=== PATIENT | female | born 1985 | race African-American/Black ===

== ENCOUNTER 2019-11-21 19:53 | Inpatient (IN) ==
[2019-11-21] MEDS ORDERED: ALBUTEROL/IPRATROPIUM 3 ML NEB RESP TX STA (20:22)
[2019-11-21] MEDS ORDERED: methylPREDNISolone SOD SUC 125 MG/2 ML VIAL IV STA (20:22)
[2019-11-21] MEDS ORDERED: cefTRIAXone 1,000 MG in SODIUM CHLORIDE 0.9% 100 ML IV STA (20:22)
[2019-11-21 20:36] LABS: Basophils # 0.1 10*3/uL (0.0-0.2); Basophils % 0.5 % (0.0-0.8); Eosinophils # 0.1 10*3/uL (0.0-0.87); Eosinophils % 0.9 % (0.00-10.9); Hemoglobin 13.1 GM/DL (12.0-16.0); Immature Granulocytes % 0.4 %; Immature Granulocytes Absolute 0.05 #; Lymphocytes # 5.7 10*3/uL (1.4-4.0); Lymphocytes % 47.2 % (21.3-54.2); Mean Corpuscular Volume 89.3 FL (87-102); Mean Platelet Volume 9.9 FL (9.6-12.0); Monocytes % 3.8 % (1.7-12.7); Neutrophils % 47.2 % (38.7-73.9); Platelet Count 279 T/CUMM (130-400); Red Blood Count 4.59 MC/CUMM (3.8-5.5); White Blood Count 12.1 T/CUMM (4-12)
[2019-11-21 20:59] LABS: Calcium 8.3 MG/DL (8.5-10.1)
[2019-11-21 21:03] LABS: Eosinophils 2 % (0-10); Lymphocytes 33 % (20-55); Platelet Estimate Normal; Segmented Neutrophils 59 % (50-85); Total Cells Counted 100
[2019-11-21] MEDS ORDERED: FUROSEMIDE 40 MG/4 ML VIAL IV STA ×2 (21:36→22:15)
[2019-11-21] MEDS ORDERED: MAGNESIUM SULF RIDER 4 GM in PREMIX 1 EACH IV PRN (23:00)
[2019-11-21] MEDS ORDERED: ONDANSETRON 4 MG/2 ML VIAL IV PRN (23:00)
[2019-11-21] MEDS ORDERED: MAGNESIUM SULF RIDER 2 GM in PREMIX 1 EACH IV PRN (23:00)
[2019-11-21] MEDS ORDERED: ACETAMINOPHEN 325 MG TABLET PO PRN (23:00)
[2019-11-22] MEDS ORDERED: POTASSIUM CHLORIDE 20 MEQ TABLET PO ONE (00:23)
[2019-11-22] MEDS: LEVALBUTEROL 1.25 MG/3 ML NEB RESP TX SCH ×4 (01:27→18:56)
[2019-11-22] MEDS: AZITHROMYCIN INJ 500 MG in SODIUM CHLORIDE 0.9% 250 ML IV SCH (01:32)
[2019-11-22 06:55] LABS: Basophils % 0.4 % (0.0-0.8); Hematocrit 41.6 VOL% (35.7-47.0); Hemoglobin 13.2 GM/DL (12.0-16.0); Immature Granulocytes % 0.7 %; Immature Granulocytes Absolute 0.07 #; Lymphocytes # 3.1 10*3/uL (1.4-4.0); Lymphocytes % 32.8 % (21.3-54.2); Mean Corpuscular HGB Conc 31.7 GM/DL (32-36); Mean Corpuscular Volume 88.9 FL (87-102); Monocytes % 1.5 % (1.7-12.7); Neutrophils % 64.6 % (38.7-73.9); Platelet Count 292 T/CUMM (130-400); Red Blood Count 4.68 MC/CUMM (3.8-5.5); White Blood Count 9.5 T/CUMM (4-12)
[2019-11-22 07:25] LABS: Alanine Aminotransferase 34 U/L (13-56); Albumin 2.9 G/DL (3.4-5.0); Alkaline Phosphatase 67 U/L (45-117); Aspartate Amino Transferase 41 U/L (0-37); Bilirubin,Total < 0.39 MG/DL (0.2-1.0); Blood Urea Nitrogen 10 MG/DL (7-18); Calcium 8.1 MG/DL (8.5-10.1); Estimated Glom Filtration Rate 137 ML/MIN; Glucose 227 MG/DL (74-106); Osmolality,Calculated 278.8 MOS/KG (273-304); Total Protein 8.8 G/DL (6.4-8.3)
[2019-11-22 07:40] LABS: Lymphocytes 36 % (20-55); Platelet Estimate Normal; Segmented Neutrophils 62 % (50-85); Total Cells Counted 100
[2019-11-22 07:52] LABS: ABG HCO3 25.9 MMOL/L (20-26); ABG Oxygen Saturation 87.1 % (95-100); ABG PCO2 36.6 MM HG (35-48); ABG PH 7.454 (7.35-7.45); ABG PO2 54.8 MM HG (80-95); ABG TCO2 22.3 MMOL/L (23-27); Allen Test Positive
[2019-11-22] MEDS ORDERED: FUROSEMIDE 40 MG/4 ML VIAL IV SCH (08:00)
[2019-11-22] MEDS: ENOXAPARIN 40 MG/0.4 ML SYRINGE SUBCUT SCH (09:02)
[2019-11-22] MEDS: ASPIRIN CHEW 81 MG TABLET PO SCH (09:03)
[2019-11-22] MEDS: PANTOPRAZOLE 40 MG TABLET PO SCH (09:03)
[2019-11-22 15:41] LABS: HIV Antigen/Antibody Result Nonreactive (Nonreactive)
[2019-11-22] MEDS: OSELTAMIVIR 75 MG CAPSULE PO SCH ×2 (16:00→20:09)
[2019-11-22] MEDS: methylPREDNISolone SOD SUC 40 MG/1 ML VIAL IV SCH ×2 (16:00→20:08)
[2019-11-22] MEDS: VANCOMYCIN INJ 2,000 MG in SODIUM CHLORIDE 0.9% 500 ML IV SCH (16:01)
[2019-11-22] MEDS: cefTRIAXone 1,000 MG in SYRINGE 1 EACH IV SCH (20:09)
[2019-11-22] MEDS: CLORAZEPATE 7.5 MG TABLET PO PRN (21:43)
[2019-11-23] MEDS: LEVALBUTEROL 1.25 MG/3 ML NEB RESP TX SCH ×4 (00:27→19:41)
[2019-11-23] MEDS ORDERED: hydrALAZINE 20 MG/1 ML VIAL IV ONE ×2 (00:30→06:02)
[2019-11-23] MEDS: AZITHROMYCIN INJ 500 MG in SODIUM CHLORIDE 0.9% 250 ML IV SCH (00:52)
[2019-11-23] MEDS: methylPREDNISolone SOD SUC 40 MG/1 ML VIAL IV SCH ×4 (00:59→20:45)
[2019-11-23] MEDS: VANCOMYCIN INJ 2,000 MG in SODIUM CHLORIDE 0.9% 500 ML IV SCH ×2 (02:00→14:55)
[2019-11-23] MEDS: CLORAZEPATE 7.5 MG TABLET PO PRN ×2 (04:17→21:53)
[2019-11-23] MEDS: ENOXAPARIN 40 MG/0.4 ML SYRINGE SUBCUT SCH (08:22)
[2019-11-23] MEDS: amLODIPine 5 MG TABLET PO SCH (08:23)
[2019-11-23] MEDS: PANTOPRAZOLE 40 MG TABLET PO SCH (08:23)
[2019-11-23] MEDS: ASPIRIN CHEW 81 MG TABLET PO SCH (08:23)
[2019-11-23] MEDS: OSELTAMIVIR 75 MG CAPSULE PO SCH ×2 (08:24→20:44)
[2019-11-23] MEDS ORDERED: INFLUENZA VIRUS VACCINE 0.5 ML SYRINGE IM ONE (12:55)
[2019-11-23] MEDS ORDERED: GLUCAGON 1 MG VIAL IM PRN (13:45)
[2019-11-23] MEDS ORDERED: DEXTROSE 10% 25 GM/250 ML BAG IV PRN (13:45)
[2019-11-23] MEDS: hydrALAZINE 20 MG/1 ML VIAL IV PRN ×2 (15:01→22:29)
[2019-11-23] MEDS: INSULIN REGULAR 100 UNIT/ML SUBCUT SCH ×2 (16:28→21:54)
[2019-11-23] MEDS: cefTRIAXone 1,000 MG in SYRINGE 1 EACH IV SCH (20:44)
[2019-11-24] MEDS: LEVALBUTEROL 1.25 MG/3 ML NEB RESP TX SCH ×4 (00:37→20:03)
[2019-11-24] MEDS: methylPREDNISolone SOD SUC 40 MG/1 ML VIAL IV SCH ×4 (02:52→22:07)
[2019-11-24] MEDS: VANCOMYCIN INJ 2,000 MG in SODIUM CHLORIDE 0.9% 500 ML IV SCH (02:52)
[2019-11-24 03:01] LABS: Basophils % 0.2 % (0.0-0.8); Hematocrit 38.4 VOL% (35.7-47.0); Hemoglobin 12.3 GM/DL (12.0-16.0); Immature Granulocytes % 0.7 %; Immature Granulocytes Absolute 0.11 #; Lymphocytes % 18.5 % (21.3-54.2); Mean Corpuscular Volume 89.3 FL (87-102); Mean Platelet Volume 10.4 FL (9.6-12.0); Monocytes % 4.9 % (1.7-12.7); Neutrophils % 75.7 % (38.7-73.9); Platelet Count 353 T/CUMM (130-400); Red Cell Distribution Width 15.5 % (9.3-17.3); White Blood Count 16.3 T/CUMM (4-12)
[2019-11-24 03:11] LABS: Calcium 8.1 MG/DL (8.5-10.1); Osmolality,Calculated 281.7 MOS/KG (273-304)
[2019-11-24] MEDS: hydrALAZINE 20 MG/1 ML VIAL IV PRN (04:55)
[2019-11-24] MEDS: AZITHROMYCIN 250 MG TABLET PO SCH (08:26)
[2019-11-24] MEDS: INSULIN REGULAR 100 UNIT/ML SUBCUT SCH ×4 (08:26→22:13)
[2019-11-24] MEDS: PANTOPRAZOLE 40 MG TABLET PO SCH (08:26)
[2019-11-24] MEDS: ENOXAPARIN 40 MG/0.4 ML SYRINGE SUBCUT SCH (08:27)
[2019-11-24] MEDS: ASPIRIN CHEW 81 MG TABLET PO SCH (08:41)
[2019-11-24] MEDS ORDERED: FUROSEMIDE 20 MG/2 ML VIAL IV ONE (08:54)
[2019-11-24] MEDS: amLODIPine 5 MG TABLET PO SCH (09:14)
[2019-11-24] MEDS: OSELTAMIVIR 75 MG CAPSULE PO SCH ×2 (09:14→22:07)
[2019-11-24] MEDS: VANCOMYCIN INJ 1,750 MG in SODIUM CHLORIDE 0.9% 500 ML IV SCH (16:19)
[2019-11-24] MEDS: CLORAZEPATE 7.5 MG TABLET PO PRN (22:28)
[2019-11-24] MEDS: cefTRIAXone 1,000 MG in SYRINGE 1 EACH IV SCH (22:40)
[2019-11-25] MEDS: VANCOMYCIN INJ 1,750 MG in SODIUM CHLORIDE 0.9% 500 ML IV SCH ×2 (00:50→12:21)
[2019-11-25] MEDS: LEVALBUTEROL 1.25 MG/3 ML NEB RESP TX SCH ×4 (01:11→20:20)
[2019-11-25] MEDS: methylPREDNISolone SOD SUC 40 MG/1 ML VIAL IV SCH ×3 (03:03→17:06)
[2019-11-25 05:33] LABS: Basophils % 0.2 % (0.0-0.8); Hematocrit 38.8 VOL% (35.7-47.0); Hemoglobin 12.2 GM/DL (12.0-16.0); Immature Granulocytes % 0.8 %; Immature Granulocytes Absolute 0.15 #; Lymphocytes # 2.5 10*3/uL (1.4-4.0); Lymphocytes % 13.8 % (21.3-54.2); Mean Corpuscular HGB Conc 31.4 GM/DL (32-36); Mean Corpuscular Volume 90.9 FL (87-102); Mean Platelet Volume 10.5 FL (9.6-12.0); Monocytes % 4.5 % (1.7-12.7); Neutrophils % 80.7 % (38.7-73.9); Platelet Count 348 T/CUMM (130-400); Red Blood Count 4.27 MC/CUMM (3.8-5.5); Red Cell Distribution Width 15.8 % (9.3-17.3)
[2019-11-25 05:39] LABS: Calcium 7.9 MG/DL (8.5-10.1); Osmolality,Calculated 291.1 MOS/KG (273-304)
[2019-11-25] MEDS: INSULIN REGULAR 100 UNIT/ML SUBCUT SCH ×4 (09:40→22:14)
[2019-11-25] MEDS: ENOXAPARIN 40 MG/0.4 ML SYRINGE SUBCUT SCH (09:40)
[2019-11-25] MEDS: ASPIRIN CHEW 81 MG TABLET PO SCH (09:41)
[2019-11-25] MEDS: AZITHROMYCIN 250 MG TABLET PO SCH (09:41)
[2019-11-25] MEDS: OSELTAMIVIR 75 MG CAPSULE PO SCH ×2 (09:41→21:59)
[2019-11-25] MEDS: PANTOPRAZOLE 40 MG TABLET PO SCH (09:41)
[2019-11-25] MEDS: amLODIPine 5 MG TABLET PO SCH (09:41)
[2019-11-25] MEDS: CLORAZEPATE 7.5 MG TABLET PO PRN (21:59)
[2019-11-25] MEDS: cefTRIAXone 1,000 MG in SYRINGE 1 EACH IV SCH (22:00)
[2019-11-26] MEDS: LEVALBUTEROL 1.25 MG/3 ML NEB RESP TX SCH ×3 (00:26→12:47)
[2019-11-26] MEDS: methylPREDNISolone SOD SUC 40 MG/1 ML VIAL IV SCH ×3 (01:35→13:40)
[2019-11-26 06:58] LABS: Basophils % 0.2 % (0.0-0.8); Hematocrit 39.4 VOL% (35.7-47.0); Hemoglobin 12.5 GM/DL (12.0-16.0); Immature Granulocytes % 1.8 %; Immature Granulocytes Absolute 0.31 #; Lymphocytes # 2.6 10*3/uL (1.4-4.0); Lymphocytes % 14.6 % (21.3-54.2); Mean Corpuscular HGB Conc 31.7 GM/DL (32-36); Monocytes % 5.4 % (1.7-12.7); Platelet Count 358 T/CUMM (130-400); Red Blood Count 4.33 MC/CUMM (3.8-5.5); Red Cell Distribution Width 15.6 % (9.3-17.3); White Blood Count 17.5 T/CUMM (4-12)
[2019-11-26 07:11] LABS: Osmolality,Calculated 285.7 MOS/KG (273-304)
[2019-11-26] MEDS: OSELTAMIVIR 75 MG CAPSULE PO SCH (09:21)
[2019-11-26] MEDS: ENOXAPARIN 40 MG/0.4 ML SYRINGE SUBCUT SCH (09:22)
[2019-11-26] MEDS: ASPIRIN CHEW 81 MG TABLET PO SCH (09:22)
[2019-11-26] MEDS: INSULIN REGULAR 100 UNIT/ML SUBCUT SCH ×2 (09:22→12:24)
[2019-11-26] MEDS: AZITHROMYCIN 250 MG TABLET PO SCH (09:22)
[2019-11-26] MEDS: amLODIPine 5 MG TABLET PO SCH (09:22)
[2019-11-26] MEDS: PANTOPRAZOLE 40 MG TABLET PO SCH (09:22)
[2019-11-26] MEDS: hydrALAZINE 20 MG/1 ML VIAL IV PRN (12:19)
[2019-11-26 13:44] VITALS: BP 152/70
[2019-11-27] MEDS ORDERED: amLODIPine 10 MG TABLET PO SCH (09:00)
[2019-12-01 15:55] LABS: Histoplasma Immnodiffusion Negative (Negative)
== END 2019-11-26 14:54 | disposition home or self-care (01) | DRG 193 ==
LOC: N.ED 19:53 → N.EDINP 23:00 → SUATTDRO 23:00 → N.5E 23:32 → N.ICU 11-22 14:59 → N.TELEN 11-24 14:30
PROVIDERS: ADMIT Internal Medicine; ATTEND Phlebology

== ENCOUNTER 2020-03-23 10:40 | Inpatient (IN) ==
[2020-03-23 12:26] LABS: Basophils % 0.1 % (0.0-0.8); Eosinophils % 0.1 % (0.00-10.9); Hematocrit 41.8 VOL% (35.7-47.0); Immature Granulocytes % 0.3 %; Immature Granulocytes Absolute 0.02 #; Lymphocytes # 2.1 10*3/uL (1.4-4.0); Lymphocytes % 29.4 % (21.3-54.2); Mean Corpuscular HGB Conc 31.1 GM/DL (32-36); Mean Corpuscular Volume 91.1 FL (87-102); Mean Platelet Volume 10.4 FL (9.6-12.0); Neutrophils % 62.1 % (38.7-73.9); Platelet Count 256 T/CUMM (130-400); Red Blood Count 4.59 MC/CUMM (3.8-5.5); Red Cell Distribution Width 14.7 % (9.3-17.3)
[2020-03-23 12:58] LABS: Alanine Aminotransferase 29 U/L (13-56); Albumin 2.9 G/DL (3.4-5.0); Alkaline Phosphatase 73 U/L (45-117); Aspartate Amino Transferase 24 U/L (0-37); Bilirubin,Total < 0.39 MG/DL (0.2-1.0); Blood Urea Nitrogen 11 MG/DL (7-18); Calcium 8.6 MG/DL (8.5-10.1); Estimated Glom Filtration Rate 87 ML/MIN; Glucose 222 MG/DL (74-106); Osmolality,Calculated 271.4 MOS/KG (273-304); Total Protein 8.2 G/DL (6.4-8.3)
[2020-03-23] MEDS ORDERED: FUROSEMIDE 40 MG/4 ML VIAL IV STA (14:01)
[2020-03-23 14:30] LABS: ABG Base Excess 0.1 MMOL/L (-2.5-2.5); ABG HCO3 24.4 MMOL/L (20-26); ABG Oxygen Saturation 92.2 % (95-100); ABG PCO2 37.1 MM HG (35-48); ABG PH 7.422 (7.35-7.45); ABG PO2 64.4 MM HG (80-95); Pt O2 Delivery Device Room Air
[2020-03-23] MEDS ORDERED: MAGNESIUM SULF RIDER 4 GM in PREMIX 1 EACH IV PRN (14:34)
[2020-03-23] MEDS ORDERED: POTASSIUM CHLORIDE RIDER 10 MEQ in PREMIX 1 EACH IV PRN (14:34)
[2020-03-23] MEDS ORDERED: MAGNESIUM SULF RIDER 2 GM in PREMIX 1 EACH IV PRN (14:34)
[2020-03-23] MEDS ORDERED: guaiFENesin/DM ER 600-30 MG TABLET PO PRN (14:35)
[2020-03-23] MEDS ORDERED: LACTULOSE 20 GM/30 ML UDCUP PO PRN (14:35)
[2020-03-23] MEDS ORDERED: DOCUSATE SODIUM 100 MG CAPSULE PO PRN (14:35)
[2020-03-23] MEDS ORDERED: CALCIUM CARBONATE CHEW 500 MG TABLET PO PRN (14:35)
[2020-03-23] MEDS ORDERED: diphenhydrAMINE CAP 25 MG CAPSULE PO PRN (14:35)
[2020-03-23] MEDS ORDERED: hydrALAZINE 20 MG/1 ML VIAL IV PRN (14:35)
[2020-03-23] MEDS ORDERED: BISACODYL 5 MG TABLET PO PRN (14:35)
[2020-03-23] MEDS ORDERED: SIMETHICONE CHEW 125 MG TABLET PO PRN (14:35)
[2020-03-23] MEDS ORDERED: ALUMINUM/MAGNES/SIMETH MAX STR 30 ML UDCUP PO PRN (14:35)
[2020-03-23] MEDS ORDERED: TISSUE ADHESIVE 1 EACH APPLICATOR TOP ONE (14:38)
[2020-03-23 15:08] LABS: Risk Ratio 3.13; VLDL CHOLESTEROL 17.8 MG/DL
[2020-03-23] MEDS ORDERED: DEXTROSE 10% 250 ML BAG IV PRN (15:21)
[2020-03-23] MEDS ORDERED: GLUCAGON 1 MG VIAL IM PRN (15:21)
[2020-03-23] MEDS: HEPARIN 5,000 UNIT/1 ML VIAL SUBCUT SCH ×2 (17:19→22:15)
[2020-03-23] MEDS: FUROSEMIDE 40 MG/4 ML VIAL IV SCH (17:19)
[2020-03-23] MEDS ORDERED: ALBUTEROL/IPRATROPIUM 3 ML NEB RESP TX SCH (19:00)
[2020-03-23] MEDS: ALBUTEROL INHALER 8 GM INH SCH (20:34)
[2020-03-23] MEDS: OMEGA 3 ACID ETHYL ESTERS 1 GM CAPSULE PO SCH (20:35)
[2020-03-23] MEDS ORDERED: carvediloL 6.25 MG TABLET PO SCH (21:00)
[2020-03-23] MEDS: ACETAMINOPHEN 325 MG TABLET PO PRN (21:35)
[2020-03-24] MEDS: ALBUTEROL INHALER 8 GM INH SCH ×4 (02:27→18:25)
[2020-03-24 06:11] LABS: Basophils % 0.2 % (0.0-0.8); Hematocrit 41.8 VOL% (35.7-47.0); Hemoglobin 13.2 GM/DL (12.0-16.0); Immature Granulocytes % 0.3 %; Immature Granulocytes Absolute 0.02 #; Lymphocytes # 2.4 10*3/uL (1.4-4.0); Lymphocytes % 37.1 % (21.3-54.2); Mean Corpuscular HGB Conc 31.6 GM/DL (32-36); Mean Corpuscular Volume 89.7 FL (87-102); Mean Platelet Volume 11.1 FL (9.6-12.0); Monocytes % 5.3 % (1.7-12.7); Neutrophils % 57.1 % (38.7-73.9); Platelet Count 239 T/CUMM (130-400); Red Blood Count 4.66 MC/CUMM (3.8-5.5); Red Cell Distribution Width 14.7 % (9.3-17.3); White Blood Count 6.4 T/CUMM (4-12)
[2020-03-24] MEDS: HEPARIN 5,000 UNIT/1 ML VIAL SUBCUT SCH ×2 (06:13→15:36)
[2020-03-24 06:55] LABS: Albumin 2.8 G/DL (3.4-5.0); Bilirubin,Total 0.7 MG/DL (0.2-1.0); Calcium 8.3 MG/DL (8.5-10.1); Osmolality,Calculated 273.4 MOS/KG (273-304)
[2020-03-24] MEDS: FUROSEMIDE 40 MG/4 ML VIAL IV SCH (08:20)
[2020-03-24] MEDS: PANTOPRAZOLE 40 MG TABLET PO SCH (08:20)
[2020-03-24] MEDS: OMEGA 3 ACID ETHYL ESTERS 1 GM CAPSULE PO SCH ×2 (08:21→20:30)
[2020-03-24] MEDS ORDERED: hydroCHLOROthiazide 25 MG TABLET PO SCH (09:00)
[2020-03-24] MEDS ORDERED: carvediloL 6.25 MG TABLET PO SCH (09:00)
[2020-03-24] MEDS ORDERED: cefTRIAXone 1,000 MG in SODIUM CHLORIDE 0.9% 100 ML IV SCH (10:30)
[2020-03-24] MEDS ORDERED: GLUCAGON 1 MG VIAL IM PRN (11:17)
[2020-03-24] MEDS ORDERED: DEXTROSE 50% 25 GM/50 ML VIAL IV PRN (11:17)
[2020-03-24] MEDS ORDERED: POTASSIUM CHLORIDE 20 MEQ TABLET PO ONE (11:20)
[2020-03-24] MEDS: cefTRIAXone 1,000 MG in SYRINGE 1 EACH IV SCH (12:19)
[2020-03-24] MEDS: AZITHROMYCIN INJ 500 MG in SODIUM CHLORIDE 0.9% 250 ML IV SCH (12:20)
[2020-03-24] MEDS: INSULIN LISPRO 100 UNIT/ML SUBCUT SCH ×3 (14:05→20:30)
[2020-03-24] MEDS: ACETAMINOPHEN 325 MG TABLET PO PRN (20:30)
[2020-03-25] MEDS: HEPARIN 5,000 UNIT/1 ML VIAL SUBCUT SCH ×3 (00:20→16:10)
[2020-03-25] MEDS: ALBUTEROL INHALER 8 GM INH SCH ×4 (04:20→18:38)
[2020-03-25 04:56] LABS: Basophils % 0.1 % (0.0-0.8); Eosinophils % 0.1 % (0.00-10.9); Hemoglobin 12.5 GM/DL (12.0-16.0); Immature Granulocytes % 0.3 %; Immature Granulocytes Absolute 0.02 #; Lymphocytes # 2.9 10*3/uL (1.4-4.0); Lymphocytes % 39.5 % (21.3-54.2); Mean Corpuscular HGB Conc 31.3 GM/DL (32-36); Mean Corpuscular Volume 90.5 FL (87-102); Mean Platelet Volume 11.2 FL (9.6-12.0); Monocytes % 4.6 % (1.7-12.7); Neutrophils % 55.4 % (38.7-73.9); Platelet Count 228 T/CUMM (130-400); Red Blood Count 4.42 MC/CUMM (3.8-5.5); Red Cell Distribution Width 14.6 % (9.3-17.3); White Blood Count 7.4 T/CUMM (4-12)
[2020-03-25 05:15] LABS: Albumin 2.7 G/DL (3.4-5.0); Bilirubin,Total 0.6 MG/DL (0.2-1.0); Calcium 8.2 MG/DL (8.5-10.1); Osmolality,Calculated 269.4 MOS/KG (273-304); Total Protein 7.8 G/DL (6.4-8.3)
[2020-03-25] MEDS: PANTOPRAZOLE 40 MG TABLET PO SCH (09:00)
[2020-03-25] MEDS ORDERED: FUROSEMIDE 40 MG/4 ML VIAL IV SCH (09:00)
[2020-03-25] MEDS: OMEGA 3 ACID ETHYL ESTERS 1 GM CAPSULE PO SCH ×2 (09:00→21:45)
[2020-03-25] MEDS: INSULIN LISPRO 100 UNIT/ML SUBCUT SCH ×4 (09:21→22:11)
[2020-03-25] MEDS: cefTRIAXone 1,000 MG in SYRINGE 1 EACH IV SCH (10:50)
[2020-03-25] MEDS: AZITHROMYCIN INJ 500 MG in SODIUM CHLORIDE 0.9% 250 ML IV SCH (10:53)
[2020-03-25] MEDS: ACETAMINOPHEN 325 MG TABLET PO PRN (13:32)
[2020-03-25] MEDS: ZALEPLON 5 MG CAPSULE PO PRN (21:46)
[2020-03-26] MEDS: HEPARIN 5,000 UNIT/1 ML VIAL SUBCUT SCH ×3 (00:51→15:32)
[2020-03-26] MEDS: ALBUTEROL INHALER 8 GM INH SCH ×4 (02:18→21:33)
[2020-03-26 06:51] LABS: Basophils % 0.2 % (0.0-0.8); Hematocrit 40.2 VOL% (35.7-47.0); Hemoglobin 12.6 GM/DL (12.0-16.0); Immature Granulocytes % 0.5 %; Immature Granulocytes Absolute 0.03 #; Lymphocytes # 2.2 10*3/uL (1.4-4.0); Lymphocytes % 35.4 % (21.3-54.2); Mean Corpuscular HGB Conc 31.3 GM/DL (32-36); Mean Corpuscular Volume 89.9 FL (87-102); Mean Platelet Volume 11.6 FL (9.6-12.0); Monocytes % 4.7 % (1.7-12.7); Neutrophils % 59.2 % (38.7-73.9); Platelet Count 214 T/CUMM (130-400); Red Blood Count 4.47 MC/CUMM (3.8-5.5); Red Cell Distribution Width 14.6 % (9.3-17.3); White Blood Count 6.1 T/CUMM (4-12)
[2020-03-26 07:05] LABS: Albumin 2.7 G/DL (3.4-5.0); Calcium 8.1 MG/DL (8.5-10.1); Osmolality,Calculated 272.2 MOS/KG (273-304); Total Protein 7.7 G/DL (6.4-8.3)
[2020-03-26 07:23] LABS: Hypochromasia Slight; Ovalocytes Slight; Platelet Estimate Adequate
[2020-03-26] MEDS: OMEGA 3 ACID ETHYL ESTERS 1 GM CAPSULE PO SCH ×2 (08:39→21:33)
[2020-03-26] MEDS: ACETAMINOPHEN 325 MG TABLET PO PRN ×2 (08:39→15:43)
[2020-03-26] MEDS: POTASSIUM CHLORIDE 20 MEQ TABLET PO PRN ×3 (08:39→13:20)
[2020-03-26] MEDS: PANTOPRAZOLE 40 MG TABLET PO SCH (08:39)
[2020-03-26] MEDS: AZITHROMYCIN 250 MG TABLET PO SCH (08:39)
[2020-03-26] MEDS: INSULIN LISPRO 100 UNIT/ML SUBCUT SCH ×4 (10:06→21:33)
[2020-03-26] MEDS: cefTRIAXone 1,000 MG in SYRINGE 1 EACH IV SCH (10:07)
[2020-03-26] MEDS: ONDANSETRON 4 MG/2 ML VIAL IV PRN ×2 (11:05→15:29)
[2020-03-27] MEDS: HEPARIN 5,000 UNIT/1 ML VIAL SUBCUT SCH ×3 (00:46→17:49)
[2020-03-27] MEDS: ALBUTEROL INHALER 8 GM INH SCH ×4 (00:50→20:19)
[2020-03-27] MEDS: OMEGA 3 ACID ETHYL ESTERS 1 GM CAPSULE PO SCH ×2 (08:23→20:18)
[2020-03-27] MEDS: AZITHROMYCIN 250 MG TABLET PO SCH (08:24)
[2020-03-27] MEDS: PANTOPRAZOLE 40 MG TABLET PO SCH (08:24)
[2020-03-27] MEDS: ZINC SULFATE 220 MG CAPSULE PO SCH (08:26)
[2020-03-27] MEDS: INSULIN LISPRO 100 UNIT/ML SUBCUT SCH ×4 (09:03→20:19)
[2020-03-27 09:38] LABS: Calcium 8.1 MG/DL (8.5-10.1); Osmolality,Calculated 273.1 MOS/KG (273-304)
[2020-03-27 11:00] LABS: Basophils % 0.3 % (0.0-0.8); Eosinophils % 0.1 % (0.00-10.9); Hematocrit 39.2 VOL% (35.7-47.0); Hemoglobin 12.2 GM/DL (12.0-16.0); Immature Granulocytes % 0.4 %; Immature Granulocytes Absolute 0.03 #; Lymphocytes # 2.8 10*3/uL (1.4-4.0); Lymphocytes % 39.1 % (21.3-54.2); Mean Corpuscular HGB Conc 31.1 GM/DL (32-36); Mean Corpuscular Volume 91.6 FL (87-102); Monocytes % 3.9 % (1.7-12.7); Neutrophils % 56.2 % (38.7-73.9); Platelet Count 215 T/CUMM (130-400); Red Blood Count 4.28 MC/CUMM (3.8-5.5); Red Cell Distribution Width 14.8 % (9.3-17.3); White Blood Count 7.2 T/CUMM (4-12)
[2020-03-27 11:31] LABS: Anisocytosis 1+; Band Neutrophils 3 % (0-10); Eosinophils 1 % (0-10); Giant Platelets Few; Lymphocytes 34 % (20-55); Macrocytosis 1+; Platelet Estimate Normal; Segmented Neutrophils 60 % (50-85); Total Cells Counted 100
[2020-03-27] MEDS: cefTRIAXone 1,000 MG in SYRINGE 1 EACH IV SCH (13:57)
[2020-03-27] MEDS ORDERED: CLORAZEPATE 7.5 MG TABLET PO PRN (17:28)
[2020-03-27] MEDS: ONDANSETRON 4 MG/2 ML VIAL IV PRN (17:36)
[2020-03-27] MEDS: ACETAMINOPHEN 325 MG TABLET PO PRN (21:20)
[2020-03-27] MEDS: ZALEPLON 5 MG CAPSULE PO PRN (21:20)
[2020-03-28] MEDS: HEPARIN 5,000 UNIT/1 ML VIAL SUBCUT SCH ×4 (00:54→22:34)
[2020-03-28] MEDS: ALBUTEROL INHALER 8 GM INH SCH ×4 (00:55→21:55)
[2020-03-28 07:39] LABS: Calcium 8.7 MG/DL (8.5-10.1); Osmolality,Calculated 267.4 MOS/KG (273-304)
[2020-03-28] MEDS: INSULIN LISPRO 100 UNIT/ML SUBCUT SCH ×4 (08:05→20:58)
[2020-03-28] MEDS: cefTRIAXone 1,000 MG in SYRINGE 1 EACH IV SCH (09:51)
[2020-03-28] MEDS: OMEGA 3 ACID ETHYL ESTERS 1 GM CAPSULE PO SCH ×2 (09:51→22:34)
[2020-03-28] MEDS: PANTOPRAZOLE 40 MG TABLET PO SCH (09:51)
[2020-03-28] MEDS: AZITHROMYCIN 250 MG TABLET PO SCH (09:51)
[2020-03-29] MEDS: ALBUTEROL INHALER 8 GM INH SCH ×4 (01:30→20:45)
[2020-03-29] MEDS: HEPARIN 5,000 UNIT/1 ML VIAL SUBCUT SCH ×3 (06:20→20:45)
[2020-03-29] MEDS: AZITHROMYCIN 250 MG TABLET PO SCH (08:26)
[2020-03-29] MEDS: OMEGA 3 ACID ETHYL ESTERS 1 GM CAPSULE PO SCH ×2 (08:26→20:45)
[2020-03-29] MEDS: ZINC SULFATE 220 MG CAPSULE PO SCH (08:26)
[2020-03-29] MEDS: PANTOPRAZOLE 40 MG TABLET PO SCH (08:26)
[2020-03-29] MEDS: INSULIN LISPRO 100 UNIT/ML SUBCUT SCH ×4 (09:39→20:45)
[2020-03-29] MEDS: cefTRIAXone 1,000 MG in SYRINGE 1 EACH IV SCH (11:08)
[2020-03-29 14:52] LABS: Calcium 8.6 MG/DL (8.5-10.1); Osmolality,Calculated 275.8 MOS/KG (273-304)
[2020-03-30] MEDS: ALBUTEROL INHALER 8 GM INH SCH ×4 (00:05→20:27)
[2020-03-30] MEDS: HEPARIN 5,000 UNIT/1 ML VIAL SUBCUT SCH ×3 (06:33→20:27)
[2020-03-30] MEDS: INSULIN LISPRO 100 UNIT/ML SUBCUT SCH ×4 (09:03→20:27)
[2020-03-30] MEDS: AZITHROMYCIN 250 MG TABLET PO SCH (11:50)
[2020-03-30] MEDS: PANTOPRAZOLE 40 MG TABLET PO SCH (11:50)
[2020-03-30] MEDS: cefTRIAXone 1,000 MG in SYRINGE 1 EACH IV SCH (11:50)
[2020-03-30] MEDS: OMEGA 3 ACID ETHYL ESTERS 1 GM CAPSULE PO SCH ×2 (11:50→20:27)
[2020-03-30 12:48] LABS: Basophils % 0.4 % (0.0-0.8); Eosinophils # 0.1 10*3/uL (0.0-0.87); Eosinophils % 1.7 % (0.00-10.9); Hematocrit 42.1 VOL% (35.7-47.0); Hemoglobin 12.8 GM/DL (12.0-16.0); Immature Granulocytes % 0.4 %; Immature Granulocytes Absolute 0.03 #; Lymphocytes # 3.4 10*3/uL (1.4-4.0); Lymphocytes % 44.7 % (21.3-54.2); Mean Corpuscular HGB Conc 30.4 GM/DL (32-36); Mean Corpuscular Volume 93.6 FL (87-102); Mean Platelet Volume 11.1 FL (9.6-12.0); Monocytes % 5.6 % (1.7-12.7); Neutrophils % 47.2 % (38.7-73.9); Platelet Count 304 T/CUMM (130-400); Red Cell Distribution Width 14.6 % (9.3-17.3); White Blood Count 7.7 T/CUMM (4-12)
[2020-03-30 14:45] LABS: Band Neutrophils 1 % (0-10); Eosinophils 3 % (0-10); Lymphocytes 37 % (20-55); Segmented Neutrophils 57 % (50-85); Total Cells Counted 100
[2020-03-30 14:46] LABS: Macrocytosis 1+; Platelet Estimate Normal
[2020-03-31] MEDS: ALBUTEROL INHALER 8 GM INH SCH ×3 (00:45→13:35)
[2020-03-31] MEDS: HEPARIN 5,000 UNIT/1 ML VIAL SUBCUT SCH (06:05)
[2020-03-31] MEDS: INSULIN LISPRO 100 UNIT/ML SUBCUT SCH ×2 (10:10→14:30)
[2020-03-31] MEDS: OMEGA 3 ACID ETHYL ESTERS 1 GM CAPSULE PO SCH (10:11)
[2020-03-31] MEDS: PANTOPRAZOLE 40 MG TABLET PO SCH (10:11)
[2020-03-31] MEDS: ZINC SULFATE 220 MG CAPSULE PO SCH (10:11)
[2020-03-31] MEDS: AZITHROMYCIN 250 MG TABLET PO SCH (10:11)
[2020-03-31] MEDS: cefTRIAXone 1,000 MG in SYRINGE 1 EACH IV SCH (10:12)
[2020-03-31 11:12] VITALS: BP 138/82
== END 2020-03-31 13:51 | disposition home or self-care (01) | DRG 178 ==
LOC: N.EDINP 10:40 → N.ED 10:40 → SUATTDRO 14:35 → N.2E 15:09
PROVIDERS: ADMIT Internal Medicine; ATTEND Internal Medicine

== ENCOUNTER 2021-07-06 17:07 | Inpatient (IN) ==
[2021-07-06] MEDS ORDERED: SODIUM CHLORIDE 0.9% 1,000 ML IV STA (19:08)
[2021-07-06] MEDS ORDERED: ONDANSETRON 4 MG/2 ML VIAL IV STA (19:08)
[2021-07-06 19:40] LABS: Basophils # 0.1 10*3/uL (0.0-0.2); Basophils % 0.2 % (0.0-0.8); Hematocrit 42.2 VOL% (35.7-47.0); Hemoglobin 13.3 GM/DL (12.0-16.0); Immature Granulocytes % 0.9 %; Immature Granulocytes Absolute 0.23 #; Lymphocytes # 3.3 10*3/uL (1.4-4.0); Lymphocytes % 13.2 % (21.3-54.2); Mean Corpuscular HGB Conc 31.5 GM/DL (32-36); Mean Corpuscular Volume 91.7 FL (87-102); Mean Platelet Volume 11.3 FL (9.6-12.0); Monocytes % 7.3 % (1.7-12.7); Neutrophils % 78.4 % (38.7-73.9); Platelet Count 283 T/CUMM (130-400); Red Cell Distribution Width 13.8 % (9.3-17.3); White Blood Count 24.9 T/CUMM (4-12)
[2021-07-06 20:01] LABS: Alanine Aminotransferase 26 U/L (13-56); Albumin 3.1 G/DL (3.4-5.0); Alkaline Phosphatase 125 U/L (45-117); Aspartate Amino Transferase 22 U/L (0-37); Blood Urea Nitrogen 6 MG/DL (7-18); Calcium 8.6 MG/DL (8.5-10.1); Carbon Dioxide 27 MMOL/L (21-32); Estimated Glom Filtration Rate 138 ML/MIN; Glucose 314 MG/DL (74-106); Sodium 136 MMOL/L (136-145); Total Protein 8.1 G/DL (6.4-8.2)
[2021-07-06] MEDS ORDERED: SODIUM CHLORIDE 0.9% 2,000 ML IV STA (20:12)
[2021-07-06] MEDS ORDERED: LABETALOL 20 MG/4 ML SYRINGE IV STA (20:15)
[2021-07-06] MEDS ORDERED: LABETALOL 20 MG/4 ML SYRINGE IV ONE (20:16)
[2021-07-06] MEDS ORDERED: PIPERACILLIN/TAZOBACTAM 3,375 MG in SODIUM CHLORIDE 0.9% 100 ML IV STA (20:27)
[2021-07-06 20:32] LABS: Lymphocytes 11 % (20-55); Segmented Neutrophils 81 % (50-85); Total Cells Counted 100
[2021-07-06 20:34] LABS: Hypochromasia Slight; Platelet Estimate Normal
[2021-07-06 20:35] LABS: Atypical Lymphocytes Few; Microcytosis Slight
[2021-07-06 20:37] LABS: Bacteria,Urine Occasional /HPF (Few); Bilirubin,Urine Negative (Negative); Blood, Urine Small mg/dL (Negative); Glucose,Urine (UA) >=500 mg/dL (Negative); Ketones,Urine 80 mg/dL (Negative); Mucus,Urine Occasional /LPF (Occasional); Nitrite,Urine Positive (Negative); Protein,Urine 30 MG/DL; RBC,Urine 8 /HPF (0-4); Squamous Epithelial Cell,Urine Occasional /HPF (0-10); Urine Appearance CLEAR (Clear); Urine Color Yellow (Yellow); Urine Specific Gravity 1.035 (1.001-1.035); Urine Urobilinogen < 2.0 EU/DL (0.2-1.0)
[2021-07-06] MEDS ORDERED: DEXTROSE 50% 25 GM/50 ML VIAL IV PRN (22:59)
[2021-07-06] MEDS ORDERED: GLUCAGON 1 MG VIAL IM PRN (22:59)
[2021-07-06] MEDS ORDERED: ACETAMINOPHEN 325 MG TABLET PO PRN (22:59)
[2021-07-06] MEDS ORDERED: LACTATED RINGERS 1,000 ML IV SCH (23:00)
[2021-07-06] MEDS ORDERED: SODIUM CHLORIDE 0.9% 1,000 ML IV ONE (23:07)
[2021-07-06] MEDS ORDERED: MORPHINE 2 MG/1 ML SYRINGE IV STA (23:22)
[2021-07-06] MEDS ORDERED: MORPHINE 2 MG/1 ML SYRINGE ONE (23:29)
[2021-07-07] MEDS ORDERED: hydrALAZINE 20 MG/1 ML VIAL IV PRN (00:54)
[2021-07-07] MEDS: ENOXAPARIN 40 MG/0.4 ML SYRINGE SUBCUT SCH (05:40)
[2021-07-07 06:13] LABS: Basophils % 0.1 % (0.0-0.8); Hematocrit 41.1 VOL% (35.7-47.0); Hemoglobin 12.8 GM/DL (12.0-16.0); Immature Granulocytes % 0.7 %; Immature Granulocytes Absolute 0.14 #; Lymphocytes # 2.3 10*3/uL (1.4-4.0); Lymphocytes % 11.3 % (21.3-54.2); Mean Corpuscular HGB Conc 31.1 GM/DL (32-36); Mean Corpuscular Volume 92.8 FL (87-102); Mean Platelet Volume 11.5 FL (9.6-12.0); Monocytes % 8.5 % (1.7-12.7); Neutrophils % 79.4 % (38.7-73.9); Platelet Count 267 T/CUMM (130-400); Red Blood Count 4.43 MC/CUMM (3.8-5.5); White Blood Count 20.3 T/CUMM (4-12)
[2021-07-07] MEDS: PIPERACILLIN/TAZOBACTAM 3,375 MG in SODIUM CHLORIDE 0.9% 100 ML IV SCH ×3 (06:17→23:45)
[2021-07-07] MEDS: MORPHINE 2 MG/1 ML SYRINGE IV PRN ×2 (06:17→10:43)
[2021-07-07] MEDS: ONDANSETRON 4 MG/2 ML VIAL IV PRN (06:23)
[2021-07-07 06:32] LABS: Calcium 8.7 MG/DL (8.5-10.1); Osmolality,Calculated 279.1 MOS/KG (273-304); Potassium 3.6 MMOL/L (3.5-5.1)
[2021-07-07 06:36] LABS: Lymphocytes 12 % (20-55); Platelet Estimate Normal; Segmented Neutrophils 79 % (50-85); Total Cells Counted 100
[2021-07-07] MEDS ORDERED: BISACODYL 10 MG SUPP RECTAL ONE (09:17)
[2021-07-07] MEDS: POLYETHYLENE GLYCOL POWDER 17 GM PACK PO SCH ×2 (10:36→21:00)
[2021-07-07] MEDS: carvediloL 6.25 MG TABLET PO SCH ×2 (15:13→21:00)
[2021-07-08 06:43] LABS: Basophils # 0.1 10*3/uL (0.0-0.2); Basophils % 0.3 % (0.0-0.8); Eosinophils # 0.1 10*3/uL (0.0-0.87); Eosinophils % 0.5 % (0.00-10.9); Hemoglobin 12.2 GM/DL (12.0-16.0); Immature Granulocytes % 0.6 %; Lymphocytes # 2.3 10*3/uL (1.4-4.0); Mean Corpuscular HGB Conc 32.1 GM/DL (32-36); Mean Corpuscular Volume 92.2 FL (87-102); Mean Platelet Volume 11.8 FL (9.6-12.0); Neutrophils % 76.6 % (38.7-73.9); Platelet Count 264 T/CUMM (130-400); Red Blood Count 4.12 MC/CUMM (3.8-5.5); Red Cell Distribution Width 14.2 % (9.3-17.3); White Blood Count 17.6 T/CUMM (4-12)
[2021-07-08 07:24] LABS: Calcium 8.4 MG/DL (8.5-10.1); Osmolality,Calculated 276.4 MOS/KG (273-304); Potassium 3.4 MMOL/L (3.5-5.1)
[2021-07-08] MEDS ORDERED: POTASSIUM CHLORIDE 20 MEQ TABLET PO PRN (07:56)
[2021-07-08] MEDS: ENOXAPARIN 40 MG/0.4 ML SYRINGE SUBCUT SCH (08:16)
[2021-07-08] MEDS: POLYETHYLENE GLYCOL POWDER 17 GM PACK PO SCH ×2 (08:16→23:28)
[2021-07-08] MEDS: PIPERACILLIN/TAZOBACTAM 3,375 MG in SODIUM CHLORIDE 0.9% 100 ML IV SCH ×2 (08:17→16:11)
[2021-07-08] MEDS: SODIUM CHLORIDE 0.9% 1,000 ML IV SCH ×3 (08:17→20:24)
[2021-07-08] MEDS: carvediloL 6.25 MG TABLET PO SCH ×2 (08:17→20:24)
[2021-07-08] MEDS: MORPHINE 2 MG/1 ML SYRINGE IV PRN ×3 (08:35→20:24)
[2021-07-08] MEDS ORDERED: INSULIN LISPRO 100 UNIT/ML SUBCUT SCH (11:30)
[2021-07-08] MEDS ORDERED: DEXTROSE 50% 25 GM/50 ML VIAL IV PRN (13:06)
[2021-07-08] MEDS: INSULIN LISPRO 100 UNIT/ML SUBCUT SCH ×2 (16:11→23:27)
[2021-07-08] MEDS ORDERED: INSULIN GLARGINE 100 UNIT/ML SUBCUT SCH ×2 (21:00)
[2021-07-09] MEDS: MORPHINE 2 MG/1 ML SYRINGE IV PRN ×5 (00:45→20:26)
[2021-07-09] MEDS: PIPERACILLIN/TAZOBACTAM 3,375 MG in SODIUM CHLORIDE 0.9% 100 ML IV SCH ×2 (01:56→08:38)
[2021-07-09] MEDS: ONDANSETRON 4 MG/2 ML VIAL IV PRN (02:00)
[2021-07-09] MEDS: SODIUM CHLORIDE 0.9% 1,000 ML IV SCH ×4 (04:28→16:06)
[2021-07-09 05:45] LABS: Basophils # 0.1 10*3/uL (0.0-0.2); Basophils % 0.3 % (0.0-0.8); Eosinophils # 0.2 10*3/uL (0.0-0.87); Eosinophils % 1.3 % (0.00-10.9); Hematocrit 37.7 VOL% (35.7-47.0); Hemoglobin 11.8 GM/DL (12.0-16.0); Immature Granulocytes % 0.4 %; Immature Granulocytes Absolute 0.06 #; Lymphocytes # 2.9 10*3/uL (1.4-4.0); Lymphocytes % 19.2 % (21.3-54.2); Mean Corpuscular HGB Conc 31.3 GM/DL (32-36); Mean Corpuscular Volume 93.8 FL (87-102); Monocytes % 9.2 % (1.7-12.7); Neutrophils % 69.6 % (38.7-73.9); Platelet Count 273 T/CUMM (130-400); Red Blood Count 4.02 MC/CUMM (3.8-5.5); White Blood Count 14.9 T/CUMM (4-12)
[2021-07-09 06:22] LABS: Calcium 8.1 MG/DL (8.5-10.1); Osmolality,Calculated 276.1 MOS/KG (273-304); Potassium 3.2 MMOL/L (3.5-5.1)
[2021-07-09] MEDS: ENOXAPARIN 40 MG/0.4 ML SYRINGE SUBCUT SCH (08:39)
[2021-07-09] MEDS: INSULIN LISPRO 100 UNIT/ML SUBCUT SCH ×4 (08:39→22:11)
[2021-07-09] MEDS: POLYETHYLENE GLYCOL POWDER 17 GM PACK PO SCH ×2 (08:39→22:12)
[2021-07-09] MEDS: carvediloL 6.25 MG TABLET PO SCH ×2 (08:39→22:12)
[2021-07-09] MEDS: metFORMIN 500 MG TABLET PO SCH ×2 (09:52→16:27)
[2021-07-09] MEDS: LEVOFLOXACIN 500 MG TABLET PO SCH (16:26)
[2021-07-09] MEDS: INSULIN NPH 100 UNIT/ML SUBCUT SCH (16:27)
[2021-07-10] MEDS: MORPHINE 2 MG/1 ML SYRINGE IV PRN ×4 (00:25→21:50)
[2021-07-10] MEDS: SODIUM CHLORIDE 0.9% 1,000 ML IV SCH (04:35)
[2021-07-10 05:42] LABS: Basophils % 0.3 % (0.0-0.8); Eosinophils # 0.2 10*3/uL (0.0-0.87); Eosinophils % 1.6 % (0.00-10.9); Hematocrit 36.7 VOL% (35.7-47.0); Hemoglobin 11.5 GM/DL (12.0-16.0); Immature Granulocytes % 0.8 %; Lymphocytes # 3.7 10*3/uL (1.4-4.0); Lymphocytes % 27.9 % (21.3-54.2); Mean Corpuscular HGB Conc 31.3 GM/DL (32-36); Mean Corpuscular Volume 93.6 FL (87-102); Mean Platelet Volume 11.4 FL (9.6-12.0); Monocytes % 7.3 % (1.7-12.7); Neutrophils % 62.1 % (38.7-73.9); Platelet Count 296 T/CUMM (130-400); Red Blood Count 3.92 MC/CUMM (3.8-5.5); White Blood Count 13.3 T/CUMM (4-12)
[2021-07-10 06:07] LABS: Hypochromasia 1+; Microcytosis 1+; Platelet Estimate Normal
[2021-07-10 06:11] LABS: Osmolality,Calculated 277.7 MOS/KG (273-304); Potassium 3.2 MMOL/L (3.5-5.1)
[2021-07-10] MEDS: POLYETHYLENE GLYCOL POWDER 17 GM PACK PO SCH ×2 (08:46→21:44)
[2021-07-10] MEDS: carvediloL 6.25 MG TABLET PO SCH ×2 (08:46→21:43)
[2021-07-10] MEDS: metFORMIN 500 MG TABLET PO SCH ×2 (08:46→16:48)
[2021-07-10] MEDS: LEVOFLOXACIN 500 MG TABLET PO SCH (08:46)
[2021-07-10] MEDS: INSULIN NPH 100 UNIT/ML SUBCUT SCH ×2 (08:47→16:49)
[2021-07-10] MEDS: ENOXAPARIN 40 MG/0.4 ML SYRINGE SUBCUT SCH (08:48)
[2021-07-10] MEDS: INSULIN LISPRO 100 UNIT/ML SUBCUT SCH ×4 (08:57→21:43)
[2021-07-10] MEDS ORDERED: POTASSIUM CHLORIDE 20 MEQ TABLET PO ONE (09:30)
[2021-07-11] MEDS: MORPHINE 2 MG/1 ML SYRINGE IV PRN (04:20)
[2021-07-11 05:16] LABS: Basophils # 0.1 10*3/uL (0.0-0.2); Basophils % 0.4 % (0.0-0.8); Eosinophils # 0.2 10*3/uL (0.0-0.87); Eosinophils % 1.6 % (0.00-10.9); Hematocrit 36.1 VOL% (35.7-47.0); Hemoglobin 11.2 GM/DL (12.0-16.0); Immature Granulocytes % 0.8 %; Immature Granulocytes Absolute 0.12 #; Lymphocytes # 3.9 10*3/uL (1.4-4.0); Lymphocytes % 27.8 % (21.3-54.2); Mean Platelet Volume 11.4 FL (9.6-12.0); Monocytes % 7.6 % (1.7-12.7); NRBC # 0.03 10*3/uL; Neutrophils % 61.8 % (38.7-73.9); Platelet Count 299 T/CUMM (130-400); Red Blood Count 3.84 MC/CUMM (3.8-5.5); Red Cell Distribution Width 14.2 % (9.3-17.3); White Blood Count 14.1 T/CUMM (4-12)
[2021-07-11 05:41] LABS: Calcium 8.3 MG/DL (8.5-10.1); Osmolality,Calculated 277.7 MOS/KG (273-304); Potassium 3.4 MMOL/L (3.5-5.1)
[2021-07-11 05:53] LABS: Anisocytosis 1+; Macrocytosis Slight; Platelet Estimate Normal
[2021-07-11] MEDS ORDERED: POTASSIUM CHLORIDE 20 MEQ TABLET PO ONE (07:30)
[2021-07-11] MEDS: INSULIN LISPRO 100 UNIT/ML SUBCUT SCH ×4 (08:02→21:32)
[2021-07-11] MEDS: LEVOFLOXACIN 500 MG TABLET PO SCH (08:54)
[2021-07-11] MEDS: metFORMIN 500 MG TABLET PO SCH ×2 (08:54→16:06)
[2021-07-11] MEDS: carvediloL 6.25 MG TABLET PO SCH ×2 (08:54→20:57)
[2021-07-11] MEDS: ENOXAPARIN 40 MG/0.4 ML SYRINGE SUBCUT SCH (08:55)
[2021-07-11] MEDS: POLYETHYLENE GLYCOL POWDER 17 GM PACK PO SCH ×2 (08:55→21:33)
[2021-07-11] MEDS: INSULIN NPH 100 UNIT/ML SUBCUT SCH ×2 (08:55→18:30)
[2021-07-11] MEDS: MUPIROCIN 2% OINT 22 GM TUBE TOP SCH (16:05)
[2021-07-12] MEDS: MUPIROCIN 2% OINT 22 GM TUBE TOP SCH ×3 (05:52→21:13)
[2021-07-12 06:22] LABS: Basophils # 0.1 10*3/uL (0.0-0.2); Basophils % 0.3 % (0.0-0.8); Eosinophils # 0.3 10*3/uL (0.0-0.87); Eosinophils % 2.1 % (0.00-10.9); Hematocrit 36.5 VOL% (35.7-47.0); Hemoglobin 11.1 GM/DL (12.0-16.0); Immature Granulocytes % 1.1 %; Immature Granulocytes Absolute 0.16 #; Lymphocytes # 4.5 10*3/uL (1.4-4.0); Lymphocytes % 30.7 % (21.3-54.2); Mean Corpuscular HGB Conc 30.4 GM/DL (32-36); Mean Corpuscular Volume 95.3 FL (87-102); NRBC # 0.03 10*3/uL; Neutrophils % 59.8 % (38.7-73.9); Platelet Count 349 T/CUMM (130-400); Red Blood Count 3.83 MC/CUMM (3.8-5.5); Red Cell Distribution Width 14.1 % (9.3-17.3); White Blood Count 14.6 T/CUMM (4-12)
[2021-07-12 07:02] LABS: Calcium 8.4 MG/DL (8.5-10.1); Osmolality,Calculated 278.7 MOS/KG (273-304); Potassium 3.4 MMOL/L (3.5-5.1)
[2021-07-12] MEDS: INSULIN NPH 100 UNIT/ML SUBCUT SCH ×2 (08:05→17:11)
[2021-07-12] MEDS: carvediloL 6.25 MG TABLET PO SCH ×2 (08:05→21:11)
[2021-07-12] MEDS: LEVOFLOXACIN 500 MG TABLET PO SCH (08:05)
[2021-07-12] MEDS: metFORMIN 500 MG TABLET PO SCH ×2 (08:06→18:31)
[2021-07-12] MEDS ORDERED: POTASSIUM CHLORIDE 20 MEQ TABLET PO ONE (08:08)
[2021-07-12] MEDS: INSULIN LISPRO 100 UNIT/ML SUBCUT SCH ×4 (08:29→21:19)
[2021-07-12] MEDS: ENOXAPARIN 40 MG/0.4 ML SYRINGE SUBCUT SCH (11:42)
[2021-07-12] MEDS: POLYETHYLENE GLYCOL POWDER 17 GM PACK PO SCH ×2 (11:42→21:12)
[2021-07-12] MEDS: MORPHINE 2 MG/1 ML SYRINGE IV PRN (11:52)
[2021-07-12] MEDS: CLINDAMYCIN INJ 900 MG/50 ML PREMIX IV SCH ×2 (11:56→17:11)
[2021-07-13] MEDS: CLINDAMYCIN INJ 900 MG/50 ML PREMIX IV SCH ×2 (00:17→04:39)
[2021-07-13 06:02] LABS: Basophils # 0.1 10*3/uL (0.0-0.2); Basophils % 0.3 % (0.0-0.8); Eosinophils # 0.3 10*3/uL (0.0-0.87); Eosinophils % 1.9 % (0.00-10.9); Hematocrit 36.9 VOL% (35.7-47.0); Hemoglobin 11.6 GM/DL (12.0-16.0); Immature Granulocytes % 0.9 %; Immature Granulocytes Absolute 0.13 #; Lymphocytes # 4.5 10*3/uL (1.4-4.0); Lymphocytes % 31.5 % (21.3-54.2); Mean Corpuscular HGB Conc 31.4 GM/DL (32-36); Mean Platelet Volume 10.4 FL (9.6-12.0); Monocytes % 5.6 % (1.7-12.7); Neutrophils % 59.8 % (38.7-73.9); Platelet Count 379 T/CUMM (130-400); Red Blood Count 4.01 MC/CUMM (3.8-5.5); White Blood Count 14.4 T/CUMM (4-12)
[2021-07-13 06:35] LABS: Calcium 9.2 MG/DL (8.5-10.1); Potassium 3.8 MMOL/L (3.5-5.1)
[2021-07-13 08:35] VITALS: BP 149/92
[2021-07-13] MEDS: INSULIN NPH 100 UNIT/ML SUBCUT SCH (09:05)
[2021-07-13] MEDS: LEVOFLOXACIN 500 MG TABLET PO SCH (09:05)
[2021-07-13] MEDS: metFORMIN 500 MG TABLET PO SCH (09:05)
[2021-07-13] MEDS: POLYETHYLENE GLYCOL POWDER 17 GM PACK PO SCH (09:05)
[2021-07-13] MEDS: carvediloL 6.25 MG TABLET PO SCH (09:05)
[2021-07-13] MEDS: MUPIROCIN 2% OINT 22 GM TUBE TOP SCH (09:06)
[2021-07-13] MEDS: INSULIN LISPRO 100 UNIT/ML SUBCUT SCH ×2 (09:06→12:23)
[2021-07-13] MEDS: ENOXAPARIN 40 MG/0.4 ML SYRINGE SUBCUT SCH (09:06)
== END 2021-07-13 12:35 | disposition home or self-care (01) | DRG 988 ==
LOC: N.ED 17:07 → N.EDINP 23:03 → N.3E 07-07 05:26
PROVIDERS: ADMIT Internal Medicine; ATTEND Internal Medicine